=== PATIENT | female | born 1955 | race Caucasian/White ===

== ENCOUNTER 2016-07-20 06:59 | Inpatient (IN) | payer MEDICARE, OTHER ==
[~2016-07-20] VITALS: Ht 165.1 cm; Wt 95.3 kg
[~2016-07-20 06:59] MED LIST: CLINDAMYCIN HC300 MG PO; COLACE 100MG C100 MG PO; INSULIN PUMP SQ; MIRALAX PACK 171 PKT PO; NORCO 10-325 T1 EACH PO; PROTONIX 40 MG40 M1 PO; VITAMIN C500 M1 PO; [UNRECOGNIZED DRUG - OTHER] PO
[2016-07-20 07:56] LABS: HEMOGLOBIN 10.3 gm/dl (12.3-15.3); RED BLOOD COUNT 3.57 M/UL (4.00-5.10); WHITE BLOOD COUNT 7.5 K/UL (4.5-11.0)
[2016-07-21 05:37] LABS: RED BLOOD COUNT 3.17 M/UL (4.00-5.10); WHITE BLOOD COUNT 10.6 K/UL (4.5-11.0)
[2016-07-22 04:58] LABS: RED BLOOD COUNT 3.14 M/UL (4.00-5.10); WHITE BLOOD COUNT 11.4 K/UL (4.5-11.0)
[2016-07-24 06:41] LABS: HEMOGLOBIN 8.5 gm/dl (12.3-15.3); RED BLOOD COUNT 2.96 M/UL (4.00-5.10)
[2016-07-24 06:43] LABS: WHITE BLOOD COUNT 8.3 K/UL (4.5-11.0)
[2016-07-25 04:48] LABS: RED BLOOD COUNT 2.79 M/UL (4.00-5.10); WHITE BLOOD COUNT 6.9 K/UL (4.5-11.0)
[2016-07-29 06:17] LABS: HEMOGLOBIN 8.4 gm/dl (12.3-15.3); RED BLOOD COUNT 2.95 M/UL (4.00-5.10); WHITE BLOOD COUNT 6.4 K/UL (4.5-11.0)
[2016-07-31 05:43] LABS: HEMOGLOBIN 7.9 gm/dl (12.3-15.3); RED BLOOD COUNT 2.79 M/UL (4.00-5.10); WHITE BLOOD COUNT 6.8 K/UL (4.5-11.0)
[2016-08-01 04:55] LABS: HEMOGLOBIN 7.9 gm/dl (12.3-15.3); RED BLOOD COUNT 2.81 M/UL (4.00-5.10); WHITE BLOOD COUNT 6.1 K/UL (4.5-11.0)
[2016-08-02 03:59] LABS: HEMOGLOBIN 8.3 gm/dl (12.3-15.3); RED BLOOD COUNT 2.92 M/UL (4.00-5.10); WHITE BLOOD COUNT 7.2 K/UL (4.5-11.0)
[2017-01-10] MEDS ORDERED: ATIVAN0.5 MG PO (15:04)
[2017-01-10] MEDS ORDERED: VITAMIN D31000 UNIT PO (15:05)
[2017-01-10] MEDS ORDERED: STOOL SOFTENER250 MG PO (15:05)
[2017-01-10] MEDS ORDERED: DESYREL 50 MG T50 MG PO (15:06)
[2017-01-10] MEDS ORDERED: HUMALOG100 UNIT/1 SQ (15:07)
[2017-01-10] MEDS ORDERED: LEVEMIR100 UNIT/1 SQ ×2 (15:09)
[2017-01-16] MEDS ORDERED: NEPRO CARB ST1000 ML PO (12:13)
[2017-01-16] MEDS ORDERED: PHENERGAN 25 MG25 M1 PO (12:19)
[2017-01-25] MEDS ORDERED: NOVOLOG 10100 UNITS/ SQ (18:17)
[2017-01-25] MEDS ORDERED: LEVEMIR 10100 UNITS/ SC (18:20)
[2017-01-25] MEDS ORDERED: COREG 3.125M3.125 MG PO (18:20)
[2017-01-25] MEDS ORDERED: IPRAT-ALBUT 0.5-3 ML NEB (21:15)
[2017-01-25] MEDS ORDERED: SINGULAIR10 MG PO (21:40)
== END 2016-08-02 12:50 | DRG 492 ==
LOC: M/S 06:59 → OR 06:59 → M/S 16:45 → OR 07-21 13:20 → M/S 08-02 12:50
PROVIDERS: Family Medicine; Internal Medicine Nephrology; Podiatrist Foot & Ankle Surgery; ADMIT Emergency Medicine
PROC: 0QBG0ZZ Excision of Right Tibia, Open Approach (ICD-10-PCS; 2016-07-20)
PROC: 0SGH07Z Fusion of Right Tarsal Joint with Autologous Tissue Substitute, Open Approach (ICD-10-PCS; 2016-07-20)
PROC: 0SGH04Z Fusion of Right Tarsal Joint with Internal Fixation Device, Open Approach (ICD-10-PCS; 2016-07-20)
PROC: 0SGK07Z Fusion of Right Tarsometatarsal Joint with Autologous Tissue Substitute, Open Approach (ICD-10-PCS; 2016-07-20)
PROC: 0SGK04Z Fusion of Right Tarsometatarsal Joint with Internal Fixation Device, Open Approach (ICD-10-PCS; 2016-07-20)
PROC: 0QH Lower Bones, Insertion (ICD-10-PCS; 2016-07-20)
PROC: 0SG Lower Joints, Fusion (ICD-10-PCS; 2016-07-20)
PROC: 0SGP0ZZ (ICD-10-PCS; 2016-07-20)
PROC: 0SNP0ZZ Release Right Toe Phalangeal Joint, Open Approach (ICD-10-PCS; 2016-07-20)
PROC: 0SG Lower Joints, Fusion (ICD-10-PCS; 2016-07-20)
PROC: 0SG Lower Joints, Fusion (ICD-10-PCS; 2016-07-20)
PROC: 0SGP04Z Fusion of Right Toe Phalangeal Joint with Internal Fixation Device, Open Approach (ICD-10-PCS; 2016-07-20)
PROC: 0SGP04Z Fusion of Right Toe Phalangeal Joint with Internal Fixation Device, Open Approach (ICD-10-PCS; 2016-07-20)
PROC: 0ST Lower Joints, Resection (ICD-10-PCS; 2016-07-20)
PROC: 0SBP0ZZ Excision of Right Toe Phalangeal Joint, Open Approach (ICD-10-PCS; 2016-07-20)
PROC: 0L8S3ZZ Division of Right Ankle Tendon, Percutaneous Approach (ICD-10-PCS; 2016-07-20)
PROC: BQ1 Imaging, Non-Axial Lower Bones, Fluoroscopy (ICD-10-PCS; 2016-07-20)
PROC: BQ1 Imaging, Non-Axial Lower Bones, Fluoroscopy (ICD-10-PCS; 2016-07-20)
PROC: BQ1 Imaging, Non-Axial Lower Bones, Fluoroscopy (ICD-10-PCS; 2016-07-20)
PROC: 0SGF04Z Fusion of Right Ankle Joint with Internal Fixation Device, Open Approach (ICD-10-PCS; principal; 2016-07-20 07:45)
PROC: 0L8V0ZZ Division of Right Foot Tendon, Open Approach (ICD-10-PCS; 2016-07-20 07:45)
PROC: 0SGF0KZ Fusion of Right Ankle Joint with Nonautologous Tissue Substitute, Open Approach (ICD-10-PCS; 2016-07-20 07:45)
DX: T84.213A Breakdown (mechanical) of internal fixation device of bones of foot and toes, initial encounter (principal); N18.6 End stage renal disease; I12.0 Hypertensive chronic kidney disease with stage 5 chronic kidney disease or end stage renal disease; I50.32 Chronic diastolic (congestive) heart failure; N39.0 Urinary tract infection, site not specified; E10.610 Type 1 diabetes mellitus with diabetic neuropathic arthropathy; E78.5 Hyperlipidemia, unspecified; E10.22 Type 1 diabetes mellitus with diabetic chronic kidney disease; Z87.11 Personal history of peptic ulcer disease; G47.30 Sleep apnea, unspecified; E03.9 Hypothyroidism, unspecified; I48.91 Unspecified atrial fibrillation; E55.9 Vitamin D deficiency, unspecified; I51.7 Cardiomegaly; M20.41 Other hammer toe(s) (acquired), right foot; K21.0 Gastro-esophageal reflux disease with esophagitis; I73.9 Peripheral vascular disease, unspecified; M81.0 Age-related osteoporosis without current pathological fracture; Y79.8 Miscellaneous orthopedic devices associated with adverse incidents, not elsewhere classified; L97.519 Non-pressure chronic ulcer of other part of right foot with unspecified severity; B96.20 Unspecified Escherichia coli [E. coli] as the cause of diseases classified elsewhere; J98.01 Acute bronchospasm; Z82.49 Family history of ischemic heart disease and other diseases of the circulatory system; Z83.49 Family history of other endocrine, nutritional and metabolic diseases; Z80.1 Family history of malignant neoplasm of trachea, bronchus and lung; Z88.6 Allergy status to analgesic agent; Z88.4 Allergy status to anesthetic agent; Z88.8 Allergy status to other drugs, medicaments and biological substances
CPT/HCPCS: 36415; 73610; 73630; 76000; 80048; 80053; 80074; 80202; 81001; 82533; 82550; 82553; 82652; 82728; 82962; 83540; 83550; 84100; 84484; 85025; 85027; 86140; 87077; 87086; 87186; 90935; 90937; 93005; 93880; 94640; 94660; 94664; 94760; 97110; 97116; 97530; C1713; C1762; C1776; J0696; J0885; J1650; J2550; J2795; J3010; J3370; J7030; J7050; J7070; J7120; Q4081

== ENCOUNTER 2017-01-29 14:18 | Inpatient (IN) | payer MEDICARE, OTHER ==
[~2017-01-29] VITALS: Ht 162.6 cm; Wt 90.7 kg
[~2017-01-29 14:18] MED LIST changes: +ATIVAN0.5 MG PO; +COREG 3.125M3.125 MG PO; +DESYREL 50 MG T50 MG PO; +HUMALOG100 UNIT/1 SQ; +IPRAT-ALBUT 0.5-3 ML NEB; +LEVEMIR 10100 UNITS/ SC; +LEVEMIR100 UNIT/1 SQ; +NEPRO CARB ST1000 ML PO; +NOVOLOG 10100 UNITS/ SQ; +PHENERGAN 25 MG25 M1 PO; +SINGULAIR10 MG PO; +STOOL SOFTENER250 MG PO; +VITAMIN D31000 UNIT PO
[2017-01-29 15:24] LABS: HEMOGLOBIN 8.1 gm/dl (12.3-15.3); RED BLOOD COUNT 2.75 M/UL (4.00-5.10); WHITE BLOOD COUNT 6.2 K/UL (4.5-11.0)
[2017-01-29 16:00] LABS: BUN/CREATININE RATIO 7 (0-10)
[2017-01-30 04:35] LABS: HEMOGLOBIN 7.4 gm/dl (12.3-15.3); RED BLOOD COUNT 2.48 M/UL (4.00-5.10); WHITE BLOOD COUNT 5.9 K/UL (4.5-11.0)
[2017-01-31 06:03] LABS: HEMOGLOBIN 7.8 gm/dl (12.3-15.3); RED BLOOD COUNT 2.64 M/UL (4.00-5.10); WHITE BLOOD COUNT 5.5 K/UL (4.5-11.0)
[2017-02-01 07:50] LABS: HEMOGLOBIN 8.2 gm/dl (12.3-15.3); RED BLOOD COUNT 2.73 M/UL (4.00-5.10); WHITE BLOOD COUNT 5.4 K/UL (4.5-11.0)
[2017-02-01] MEDS ORDERED: BUSPAR 5MG TABLE5 MG PO (09:40)
[2017-02-01] MEDS ORDERED: PHOSLO 667 MG667 MG PO (09:41)
[2017-02-01] MEDS ORDERED: LEXAPRO5 MG PO (09:42)
[2017-02-01] MEDS ORDERED: PAIN RELIEF650 MG PO (09:56)
== END 2017-02-01 20:58 | disposition home or self-care (01) | DRG 637 ==
LOC: ER1 14:18 → ZEROF 16:10 → CCU 16:10
PROVIDERS: Emergency Medicine; Internal Medicine Nephrology; ADMIT Internal Medicine
DX: E10.10 Type 1 diabetes mellitus with ketoacidosis without coma (principal); N18.6 End stage renal disease; I13.2 Hypertensive heart and chronic kidney disease with heart failure and with stage 5 chronic kidney disease, or end stage renal disease; I50.30 Unspecified diastolic (congestive) heart failure; E87.1 Hypo-osmolality and hyponatremia; Z79.4 Long term (current) use of insulin; E10.43 Type 1 diabetes mellitus with diabetic autonomic (poly)neuropathy; K31.84 Gastroparesis; E10.22 Type 1 diabetes mellitus with diabetic chronic kidney disease; Z88.5 Allergy status to narcotic agent; E87.5 Hyperkalemia; G89.29 Other chronic pain; M14.671 Charcot's joint, right ankle and foot; D63.1 Anemia in chronic kidney disease
CPT/HCPCS: 36415; 71010; 73590; 80048; 80053; 82009; 82150; 82248; 82550; 82553; 82728; 82962; 83540; 83550; 83690; 83874; 84100; 84484; 85025; 85027; 90937; 93005; 94640; 94660; 94664; G0008; G0257; J1815; J2550; J7030; J7050; Q2039; Q4081